=== PATIENT | female | born 1945 | race Caucasian/White ===

== ENCOUNTER → 2017-11-22 | Outpatient (CLI) | payer MEDICARE | END | disposition home or self-care (01) | LOC: CFH 13:30 | PROVIDERS: ATTEND Internal Medicine Cardiovascular Disease | DX: E11.9 Type 2 diabetes mellitus without complications (principal); R01.1 Cardiac murmur, unspecified; R06.02 Shortness of breath | CPT/HCPCS: 93306 ==

== ENCOUNTER → 2017-12-06 | Outpatient (CLI) | payer MEDICARE | END | disposition home or self-care (01) | LOC: CFH 12:19 | PROVIDERS: ATTEND Internal Medicine Cardiovascular Disease | DX: E11.9 Type 2 diabetes mellitus without complications (principal); R06.02 Shortness of breath; R01.1 Cardiac murmur, unspecified | CPT/HCPCS: 78452; 93017; A9502 ==

== ENCOUNTER 2019-12-04 14:54 | Outpatient (CLI) | payer MEDICARE ==
[2019-12-04] MEDS ORDERED: GADOTERATE 10 MMOL/20 ML SYR ONE (15:59)
== END 2019-12-04 23:59 | disposition home or self-care (01) ==
LOC: RAD 14:54
PROVIDERS: ATTEND Ophthalmology
DX: I67.82 Cerebral ischemia (principal); G44.009 Cluster headache syndrome, unspecified, not intractable; F45.8 Other somatoform disorders; J34.89 Other specified disorders of nose and nasal sinuses; K76.9 Liver disease, unspecified; E83.01 Wilson's disease; R73.9 Hyperglycemia, unspecified
CPT/HCPCS: 70553; A9575